=== PATIENT | male | born 1950 | race Caucasian/White ===

== ENCOUNTER 2020-07-21 08:07 | Emergency (ER) | payer MEDICARE ==
--- NOTE | 2020-07-21 08:12 | ERPHSYRPT ---
- History of Present Illness Time Seen by Provider: 07/21/20 08:11 Source: patient Exam Limitations: no limitations Physician History: This is a 69-year-old gentleman who presents with left wrist pain and swelling for approximately 2 weeks. It responds to ice but then recurs. Patient has no known history of gout. He denies injury to his left wrist. He has never had anything like this in the past. He had no fevers or chills. He has no chest pain no shortness of breath. Patient states that he stopped all of his medications except albuterol inhaler and nebulizer treatments. Occurred: other (Present for 2 weeks) Method of Injury: other (No injury) Quality: constant, aching Severity of Pain-Max: mild Severity of Pain-Current: mild Extremities Pain Location: wrist: left Modifying Factors: Improves With: movement (Elicits pain) Associated Symptoms: none Allergies/Adverse Reactions: No Known Drug Allergies Allergy (Unverified 07/21/20 08:13) Home Medications: Albuterol 2.5 mg/3 ml Neb [Proventil 2.5 mg/3 ml Neb] 1 vial IH Q4H PRN PRN 07/21/20 [History] Albuterol Common Canister [Ventolin Common Canister] 1 puff IH Q4HPRN PRN 07/21/20 [History] Travel Risk - International Travel Have you traveled outside of the country in past 3 weeks: No - Coronavirus Screening Are you exhibiting any of the following symptoms?: No Close contact with a COVID-19 positive Pt in past 14-21 Days: No - Review of Systems Constitutional: No Symptoms Eyes: No Symptoms Ears, Nose, & Throat: No Symptoms Respiratory: No Symptoms Cardiac: No Symptoms Abdominal/Gastrointestinal: No Symptoms Genitourinary Symptoms: No Symptoms Musculoskeletal: Joint Redness (Left wrist), Joint Pain, Joint Swelling Skin: No Symptoms Neurological: No Symptoms Psychological: No Symptoms Endocrine: No Symptoms Hematologic/Lymphatic: No Symptoms Immunological/Allergic: No Symptoms All Other Systems: Reviewed and Negative - Past Medical History Pertinent Past Medical History: Yes - Past Surgical History Past Surgical History: Yes - Nursing Vital Signs Nursing Vital Signs: Initial Vital Signs Temperature 98.0 F 07/21/20 08:14 Pulse Rate 86 07/21/20 08:14 Respiratory Rate 18 07/21/20 08:14 Blood Pressure 151/102 07/21/20 08:14 O2 Sat by Pulse Oximetry 97 07/21/20 08:14 Pain Scale Pain Intensity 5 - Physical Exam General Appearance: no apparent distress, alert, anxiety Eyes, Ears, Nose, Throat Exam: normal ENT inspection Neck Exam: normal inspection, non-tender, supple, full range of motion Cardiovascular/Respiratory Exam: chest non-tender, no respiratory distress Abdominal Exam: non-tender Back Exam: normal inspection, normal range of motion, No CVA tenderness, No vertebral tenderness Shoulder Exam: normal inspection, non-tender, no evidence of injury, normal ROM Elbow/Forearm Exam: normal inspection, non-tender, no evidence of injury, normal ROM Wrist Exam: no evidence of injury, normal ROM, bone tenderness (Left wrist), soft tissue tenderness (Left wrist), swelling (Left wrist), No deformity Hand Exam: normal inspection, non-tender, no evidence of injury, normal ROM Neuro/Tendon Exam: normal sensation, normal motor functions, normal tendon functions Mental Status Exam: alert, oriented x 3, cooperative Skin Exam: other (Redness, swelling, tenderness dorsal aspect left wrist) SpO2 Interpretation: normal O2 Delivery: Room Air Ordered Tests: Active Orders 24 hr Category Date Time Status WRIST (MIN 3 VIEWS) Stat Exams 07/21/20 08:13 Completed Uric Acid Stat Lab 07/21/20 08:26 Completed Lab/Rad Data: Laboratory Results 07/21/20 Range/Units 08:26 Uric Acid 5.8 (3.5-7.2) mg/dL - Progress Progress: unchanged Progress Note: 07/21/20 09:00 X-ray of left wrist reveals no acute fracture or dislocation. Counseled pt/family regarding: diagnosis, need for follow-up, rad results - Departure Departure Disposition: Home Clinical Impression: Gout, Left wrist pain Condition: Stable Critical Care Time: No Referrals: ARIEL CARCAMO [Primary Care Provider] - Additional Instructions: Drink plenty of fluids. Take your medication as prescribed. Follow-up with your primary care physician for further management. Prescriptions: Oxycodone HCl/Acetaminophen [Percocet 5-325 mg Tablet] 1 each PO Q8H PRN PRN #8 tablet MDD 3 PRN Reason: Pain Indomethacin 25 mg [Indocin 25 MG] 25 mg PO TID #21 capsule
--- NOTE | 2020-07-21 08:56 | XRAY ---
Indication: Swelling. No known injury. Comparison: None 3 view left wrist demonstrates mild degenerative changes 1st metacarpal multangular articulation. No other bony, articular, or soft tissue abnormalities.
[2020-07-21 09:28] VITALS: BP 182/93; PULSE 82; O2SAT 96
== END 2020-07-21 10:09 | disposition home or self-care (01) ==
LOC: ED 08:07
DX: M10.032 Idiopathic gout, left wrist (principal); M25.532 Pain in left wrist
CPT/HCPCS: 36415; 73110; 80061; 83036; 83721; 84550; 99284

== ENCOUNTER 2021-12-14 13:33 | Emergency (ER) | payer MEDICARE | END 2021-12-14 13:45 | disposition left against medical advice (07) | LOC: ED 13:33 | DX: Z53.21 Procedure and treatment not carried out due to patient leaving prior to being seen by health care provider (principal) ==